=== PATIENT | male | born 1950 | race Caucasian/White ===

== ENCOUNTER 2016-12-27 10:22 | Outpatient (CLI) | payer BC, OTHER ==
[2016-12-27 18:15] LABS: BASOPHILS % (AUTO) 0.8 %; HGB - HEMOGLOBIN 12.8 g/dL (14.0-18.0); LYMPHOCYTES # (AUTO) 1.6 10^3/uL (1.5-3.5); LYMPHOCYTES % (AUTO) 31.7 %; MEAN CORPUSCULAR HEMOGLOBIN 31.8 pg (27.0-31.0); MEAN CORPUSCULAR HGB CONC 32.8 g/dL (32.0-36.0); MEAN PLATELET VOLUME 10.2 fL (7.4-11.4); MONOCYTES # (AUTO) 0.4 10^3/uL (0.0-1.0); MONOCYTES % (AUTO) 7.9 %; NEUTROPHILS # (AUTO) 2.9 10^3/uL (1.5-6.6); NEUTROPHILS % (AUTO) 58.6 %; NUCLEATED RED BLOOD CELLS AUTO 0.1 /100WBC; RED BLOOD COUNT 4.02 10^6/uL (4.70-6.10); UNCORRECTED WHITE BLOOD COUNT 4.9 x10^3/uL; WHITE BLOOD COUNT 4.9 x10^3/uL (4.8-10.8)
[2016-12-27 18:22] LABS: INR 1.1 (0.8-1.2); PT - PROTHROMBIN TIME 12.8 secs (9.9-12.6)
[2016-12-27 18:29] LABS: CHOL/HDL RATIO 2.2 (<5.0); CHOLESTEROL 69 mg/dL; HDL CHOLESTEROL 32 mg/dL; IRON 71 ug/dL (45-182); LDL/HDL RATIO 0.5 (<3.6); TOTAL IRON BINDING CAPACITY 406 ug/dL (250-450); TRANSFERRIN 290 mg/dL (180-329); TRIGLYCERIDES 109 mg/dL; VLDL CHOLESTEROL 22 mg/dL
[2016-12-27 18:59] LABS: THYROID STIMULATING HORMONE 0.68 uIU/mL (0.34-5.60)
== END 2016-12-27 10:23 | disposition home or self-care (01) ==
LOC: LAB.F 10:22
PROVIDERS: ATTEND Surgery
DX: E46 Unspecified protein-calorie malnutrition (principal); E63.9 Nutritional deficiency, unspecified
CPT/HCPCS: 36415; 80061; 82306; 82607; 82728; 82746; 83540; 84425; 84443; 84466; 84481; 85025; 85610; 85730

== ENCOUNTER 2016-12-31 11:07 | Outpatient (CLI) | payer BC, OTHER | END 2016-12-31 11:08 | disposition home or self-care (01) | DX: E46 Unspecified protein-calorie malnutrition (principal); E63.9 Nutritional deficiency, unspecified ==